=== PATIENT | female | born 1950 | race Caucasian/White ===

== ENCOUNTER 2020-12-12 16:55 | Observation (INO) | payer OTHER ==
[2020-12-12] VITALS (14 sets, daily range): BP systolic 86–151; BP diastolic 43–66
--- NOTE | ~2020-12-12 | OP ---
[address] [place] [address] OPERATIVE REPORT Name: MIKEL ACOSTA NANCY Room: [address] Jayda Fierro#: [id number] Admission: 12/12/20 Attend Phys: [facility] Discharge: 12/13/20 Date of : 48 Report #: [id number] THIS REPORT FOR: cc: [facility],Medical Records Staff ~ [facility]. By: [id number] Records Staff ROSARIO /LEAH
--- NOTE | ~2020-12-12 | H ---
[address] [address] HISTORY AND PHYSICAL Name: MIKEL ACOSTA NANCY Room: [address] Jayda Fierro#: [id number] Admission: 12/12/20 Attend Phys: [facility] Discharge: 12/13/20 Date of : 48 Report #: [id number] THIS REPORT FOR: cc: [facility],Medical Records Staff ~ For History and Physical please refer to the documentation in acute inpatient stay in the patient's medical record. By: [id number] Records Staff ROSARIO /LEAH
[2020-12-12 18:20] LABS: HEMATOCRIT 36.1 % (37.0-47.0); HEMOGLOBIN 11.4 gm/dL (12.0-15.0); MCH 26.9 pg (26.0-34.0); MCHC 31.5 g/dL (28.0-37.0); MCV 85.3 fL (80.0-100.0); MPV 8.7 fl. (7.2-11.1); NUCLEATED RBCS 0 /100WBC; PLATELET COUNT* 236 thou/uL (150-400); RBC 4.23 mil/uL (4.20-5.00); RDW-CV 15.9 % (10.5-14.5); WBC 35.9 thou/uL (4.0-11.0)
[2020-12-12 18:38] LABS: URINE BILIRUBIN NEGATIVE (Negative); URINE BLOOD 2+ (Negative); URINE CLARITY CLEAR; URINE COLOR YELLOW; URINE GLUCOSE-RANDOM NEGATIVE (Negative); URINE KETONES NEGATIVE (Negative); URINE LEUKOCYTES NEGATIVE (Negative); URINE NITRITE NEGATIVE (Negative); URINE PROTEIN TRACE (Negative); URINE SPECIFIC GRAVITY <= 1.005 (1.005-1.030); URINE UROBILINOGEN 0.2 E.U./dl (0.2-1.0)
[2020-12-12 18:40] LABS: APTT 35.6 Seconds (25.0-31.3); INR 1.2; PROTIME 13.1 Seconds (9.20-11.50)
[2020-12-12 18:42] LABS: ALBUMIN 2.2 g/dL (3.4-5.0); DIRECT BILIRUBIN 0.2 mg/dL (<0.1-0.3); MAGNESIUM 1.8 mg/dL (1.8-2.4); PHOSPHORUS* 3.8 mg/dL (2.5-4.9); TOTAL BILIRUBIN 0.7 mg/dL (<0.1-1.0); TOTAL PROTEIN 4.9 g/dL (6.4-8.2)
[2020-12-12 18:57] LABS: ABSOLUTE LYMPHOCYTES 2.2 thou/uL (0.8-5.3); ABSOLUTE MONOCYTES 1.4 thou/uL (0.0-1.2); ABSOLUTE NEUTROPHILS 32.3 thou/uL (1.6-8.1)
[2020-12-12 18:58] LABS: PLATELET ESTIMATE ADEQUATE
[2020-12-12 19:00] LABS: MUCUS None Seen strn/LPF (None Seen); SQUAMOUS 0-3 Few /LPF (0-3)
[2020-12-12 19:01] LABS: AMORPHOUS URATES Moderate /LPF (None Seen); BACTERIA 1-9 Few /HPF (None Seen); CASTS None Seen /LPF (None Seen); URINE WBC 0-5 Rare /HPF (0-5)
[2020-12-12 19:02] LABS: URINE RBC 3-10 Few /HPF (0-2)
[2020-12-12 19:05] LABS: CK-MB MASS 17.2 ng/mL (<0.5-3.6)
[2020-12-13] VITALS (8 sets, daily range): BP systolic 89–140; BP diastolic 38–56
[2020-12-13 00:21] LABS: ABSOLUTE BASOPHILS 0.1 thou/uL (0.0-0.2); ABSOLUTE LYMPHOCYTES 0.7 thou/uL (0.8-5.3); ABSOLUTE NEUTROPHILS 30.9 thou/uL (1.6-8.1); BASOPHILS 0.3 %; EOSINOPHILS 0.1 %; HEMOGLOBIN 11.4 gm/dL (12.0-15.0); LYMPHOCYTES 2.3 %; MCH 27.5 pg (26.0-34.0); MCHC 32.6 g/dL (28.0-37.0); MCV 84.5 fL (80.0-100.0); MONOCYTES 2.9 %; MPV 8.3 fl. (7.2-11.1); NUCLEATED RBCS 0 /100WBC; PLATELET COUNT* 222 thou/uL (150-400); POLYS 94.4 %; RBC 4.15 mil/uL (4.20-5.00); RDW-CV 15.8 % (10.5-14.5); WBC 32.7 thou/uL (4.0-11.0)
[2020-12-13 00:34] LABS: PCO2 31.8 mmHg (35.0-45.0)
[2020-12-13 00:35] LABS: PO2 286.2 mmHg (75.0-100.0)
[2020-12-13 00:36] LABS: APTT 35.5 Seconds (25.0-31.3); INR 1.1; PROTIME 11.9 Seconds (9.20-11.50)
[2020-12-13 00:38] LABS: ALBUMIN 2.3 g/dL (3.4-5.0); DIRECT BILIRUBIN 0.3 mg/dL (<0.1-0.3); MAGNESIUM 1.8 mg/dL (1.8-2.4); PHOSPHORUS* 4.1 mg/dL (2.5-4.9); TOTAL BILIRUBIN 0.8 mg/dL (<0.1-1.0); TOTAL PROTEIN 5.1 g/dL (6.4-8.2); TROPONIN-I LEVEL 0.29 ng/mL (<0.06)
[2020-12-13 00:48] LABS: BE -9.7 mmol/L (-2 to +3)
[2020-12-13 00:50] LABS: PCO2 54.7 mmHg (35.0-45.0); PO2 271.3 mmHg (75.0-100.0)
[2020-12-14 02:06] LABS: GLYCOHEMOGLOBIN (HGB A1C) 5.9 % (4.8-5.6)
== END 2020-12-13 05:12 ==
LOC: M.ICU 16:55
DX: Z00.5 Encounter for examination of potential donor of organ and tissue (principal)